=== PATIENT | female | born 1985 | race African-American/Black ===

== ENCOUNTER 2022-08-23 14:33 | Emergency (ER) | payer MEDICAID, OTHER ==
[~2022-08-23] VITALS: Ht 157.5 cm; Wt 79.0 kg
[2022-08-23] MEDS ORDERED: NITROGLYCERIN 0.4MG TABLET SL SL ONE (15:00)
[2022-08-23 15:37] LABS: BASOPHILS % 0.8 % (0.0-2.0); EOSINOPHILS % 1.3 % (0.0-5.0); HEMATOCRIT. 36.8 % (36.0-48.0); LYMPHOCYTES % 25.7 % (20.0-50.0); MEAN CORPUSCULAR HEMOGLOBIN 27.3 pg (28.0-32.0); MEAN CORPUSCULAR VOLUME 83.9 fL (81.0-99.0); MEAN PLATELET VOLUME 8.5 fl (7.4-10.4); MONOCYTES % 6.3 % (2.0-8.0); NEUTROPHILS % 65.9 % (40.0-76.0); PLATELET 369 x1000/uL (130-400); RED BLOOD CELL COUNT 4.39 mill/uL (4.2-5.4)
[2022-08-23 15:42] LABS: CHLORIDE 108 mEq/L (98-107)
[2022-08-23 15:43] LABS: CLARITY URINE CLEAR (CLEAR); COLOR URINE YELLOW (YELLOW); KETONES URINE TRACE (NEGATIVE); LEUKOCYTE ESTERASE URINE NEGATIVE (NEGATIVE); NITRITE URINE NEGATIVE (NEGATIVE); OCCULT BLOOD URINE NEGATIVE (NEGATIVE); PROTEIN URINE NEGATIVE (NEGATIVE); SPECIFIC GRAVITY URINE 1.019 (1.005-1.030)
[2022-08-23] MEDS ORDERED: CYCLOBENZAPRINE 10MG TABLET PO ONE (17:00)
[2022-08-23] MEDS ORDERED: KETOROLAC 15MG/ML VIAL IV ONE (19:45)
[2022-08-23 20:15] VITALS: BP 129/59
== END 2022-08-23 20:26 | disposition home or self-care (01) ==
LOC: ER 14:57 → EDBEDREQ 16:07 → CANBEDREQ 17:31 → ER 20:26
DX: R07.89 Other chest pain (principal); R00.0 Tachycardia, unspecified
CPT/HCPCS: 36415; 71045; 80053; 81003; 81025; 84484; 85025; 85379; 93005; 96374; 99285; J1885; Z7610